=== PATIENT | male | born 1995 | race Two or more races ===

== ENCOUNTER 2018-08-20 15:54 | Emergency (ER) | payer MEDICAID ==
[~2018-08-20] VITALS: Ht 182.9 cm; Wt 83.9 kg
[2018-08-20 16:00] VITALS: BP 135/87
[2018-08-20] MEDS ORDERED: BACLOFEN 10 MG TAB PO ONE (19:45)
== END 2018-08-20 20:13 | disposition home or self-care (01) ==
LOC: ER 15:54 → EDBD 15:54 → ER 20:13
DX: M62.830 Muscle spasm of back (principal); M54.2 Cervicalgia; Z88.0 Allergy status to penicillin; V48.0XXA Car driver injured in noncollision transport accident in nontraffic accident, initial encounter; Y93.89 Activity, other specified; Y99.8 Other external cause status; Y92.89 Other specified places as the place of occurrence of the external cause
CPT/HCPCS: 70450; 72125; 73120

== ENCOUNTER 2018-12-25 00:10 | Emergency (ER) | payer MEDICAID ==
[~2018-12-25] VITALS: Ht 180.3 cm; Wt 87.5 kg
[2018-12-25 00:20] VITALS: BP 131/92
[2018-12-25 00:41] LABS: Basophils # (auto) 0 uL; Basophils % (auto) 0.4 % (0.0-2.0); Eosinophils # (auto) 0.2 uL; Eosinophils % (auto) 1.8 % (0.0-7.0); Hematocrit 46.4 % (41.0-53.0); Lymphocytes # (auto) 4.8 uL; Lymphocytes % (auto) 44.7 % (10.0-50.0); Mean Corpuscular Hemoglobin 30.6 pg (28.0-32.0); Mean Corpuscular Hgb Conc. 34.5 g/dL (32.0-36.0); Mean Corpuscular Volume 88.7 fL (80.0-100.0); Monocytes # (auto) 0.8 uL; Monocytes % (auto) 7.6 % (0.0-12.0); Neutrophils # (auto) 4.8 uL; Neutrophils % (auto) 45.5 % (37.0-80.0); Nucleated Red Blood Cells % 0.1 %; Platelet Count (auto) 320 10^3/uL (140-450); Red Blood Cells 5.23 10^6/uL (4.5-5.90); Red Cell Distribution Width 13.6 % (11.8-14.3); White Blood Cell 10.6 10^3/uL (4.4-10.8)
[2018-12-25 01:04] LABS: INR 0.95 (0.9-1.15); Partial Thromboplastin Time 29.1 sec (23.64-32.05)
[2018-12-25 02:09] LABS: Chloride 106 mmol/L (98-107); Potassium 3.7 mmol/L (3.5-5.1); Sodium 139 mmol/L (136-145)
[2018-12-25 02:19] LABS: Alanine Aminotransferase 40 U/L (16-61); Alkaline Phosphatase 63 U/L (45-117); Anion Gap 8 (5-15); Aspartate Aminotransferase 17 U/L (15-37); BUN/Creatinine Ratio 15.6; Bilirubin, Total 0.4 mg/dL (0.2-1.0); Blood Urea Nitrogen 14 mg/dL (7-18); Carbon Dioxide 25 mmol/L (21-32); GFR African American 133 mL/min; GFR Non-African American 110 mL/min; Glucose 108 mg/dL (74-106); Magnesium 2.1 mg/dL (1.6-2.6)
== END 2018-12-25 02:00 | disposition left against medical advice (07) ==
LOC: ER 00:13
DX: R07.9 Chest pain, unspecified (principal); Z53.21 Procedure and treatment not carried out due to patient leaving prior to being seen by health care provider
CPT/HCPCS: 36415; 71046; 80053; 83735; 84484; 85025; 85610; 85730